=== PATIENT | female | born 1995 | race Caucasian/White ===

== ENCOUNTER 2017-09-24 10:31 | Emergency (ER) | payer OTHER ==
[~2017-09-24] VITALS: Ht 154.9 cm; Wt 74.4 kg
[~2017-09-24 10:31] MED LIST: ALBU90OI PO; AMOX500 PO; ANTOXYBENA BOTHEARS; Amoxicillin500 MG PO; Amoxicillin875 MG PO; CEPH500 PO; CIPRO500 MG PO; CODGUAEL PO; CYCL10 PO; FLUT44OIA IH; Flonase 0.05% N16 GM; GUAIFENESIN1200 MG PO; HYDACE5 PO; KETO10 PO; Keflex500 MG PO; MULVITMINE PO; MUPI2TC TOP; NYST100TC TOP; Norco 5-325 Ta1 EACH PO; OXYACE5T PO; PREN-16 PO; SULI150 PO; Veetids 500500 MG PO
[2018-04-09] MEDS ORDERED: Vibramycin100 MG PO (20:53)
[2018-04-09] MEDS ORDERED: Flagyl500 MG PO (20:53)
[2018-07-26] MEDS ORDERED: CEPH500 PO (14:00)
[2018-07-26] MEDS ORDERED: Pyridium200 MG PO (14:01)
== END 2017-09-24 12:36 | disposition home or self-care (01) ==
LOC: ER 10:31
DX: S90.31XA Contusion of right foot, initial encounter (principal); J45.909 Unspecified asthma, uncomplicated; F17.200 Nicotine dependence, unspecified, uncomplicated; Z88.8 Allergy status to other drugs, medicaments and biological substances; Z88.6 Allergy status to analgesic agent; Z88.5 Allergy status to narcotic agent; Z98.51 Tubal ligation status; W22.8XXA Striking against or struck by other objects, initial encounter
CPT/HCPCS: 73630; 99283

== ENCOUNTER 2018-02-21 14:17 | Emergency (ER) | payer OTHER ==
[~2018-02-21] VITALS: Ht 154.9 cm; Wt 74.4 kg
[2018-02-21] MEDS ORDERED: LACTULOSE20 GM/30 M PO (14:51)
== END 2018-02-21 14:55 | disposition home or self-care (01) ==
LOC: ER 14:17
DX: K59.00 Constipation, unspecified (principal); Z88.8 Allergy status to other drugs, medicaments and biological substances; Z88.6 Allergy status to analgesic agent; Z88.5 Allergy status to narcotic agent; J45.909 Unspecified asthma, uncomplicated; F17.210 Nicotine dependence, cigarettes, uncomplicated
CPT/HCPCS: 99282

== ENCOUNTER → 2018-05-26 | Outpatient (CLI) | payer OTHER ==
[~2018-05-26] MED LIST changes: +Flagyl500 MG PO; +LACTULOSE20 GM/30 M PO; +Vibramycin100 MG PO
[2018-05-27 11:35] LABS: Candida species (DNA Probe) Positive (NEGATIVE); G. vaginalis (DNA Probe) Positive (NEGATIVE); T. vaginalis (DNA Probe) Negative (NEGATIVE)
[2018-05-30 19:06] LABS: CHLAMYDIA TRACHOMATIS, NAA Negative (Negative); NEISSERIA GONORRHOEAE, NAA Negative (Negative)
== END ==
LOC: LAB 11:45 → LAB SHORT 11:45
PROVIDERS: Registered Nurse
DX: Z00.00 Encounter for general adult medical examination without abnormal findings (principal); N89.8 Other specified noninflammatory disorders of vagina; L29.2 Pruritus vulvae
CPT/HCPCS: 87480; 87491; 87510; 87591; 87660; G0123

== ENCOUNTER 2019-02-12 15:48 | Emergency (ER) | payer OTHER ==
[~2019-02-12] VITALS: Ht 154.9 cm; Wt 73.0 kg
[~2019-02-12 15:48] MED LIST changes: +Pyridium200 MG PO
[2019-02-12] MEDS ORDERED: ACET500 PO (16:51)
[2019-02-12] MEDS ORDERED: Amoxicillin500 MG PO (16:51)
== END 2019-02-12 17:14 | disposition home or self-care (01) ==
LOC: ER 15:48
DX: J02.9 Acute pharyngitis, unspecified (principal); F17.200 Nicotine dependence, unspecified, uncomplicated
CPT/HCPCS: 99282

== ENCOUNTER 2019-03-13 10:16 | Emergency (ER) | payer OTHER ==
[~2019-03-13] VITALS: Ht 154.9 cm; Wt 74.8 kg
[~2019-03-13 10:16] MED LIST changes: +ACET500 PO
[2019-03-13 11:42] LABS: BASOPHILS ABSOLUTE AUTO 0.04 K/mm3 (0.00-0.23); BASOPHILS PERCENT AUTO 1 % (0-2); EOSINOPHILS ABSOLUTE AUTO 0.29 K/mm3 (0.00-0.68); EOSINOPHILS PERCENT AUTO 4 % (0-6); Hematocrit 34.4 % (33.0-51.0); Hemoglobin 11.6 g/dL (11.5-16.0); IMMATURE GRAN ABSOLUTE AUTO 0.16 K/mm3 (0.00-0.10); IMMATURE GRAN PERCENT AUTO 2 % (0-1); LYMPHOCYTES PERCENT AUTO 25 % (21-46); MONOCYTES ABSOLUTE AUTO 0.57 K/mm3 (0.16-1.47); MONOCYTES PERCENT AUTO 7 % (4-13); Mean Corpuscular HGB 32.8 pg (26.0-34.0); Mean Corpuscular HGB Conc 33.7 g/dL (31.5-36.5); Mean Corpuscular Volume 97 fL (80-100); NEUTROPHILS PERCENT AUTO 62 % (41-73); Platelet Count 301 K/mm3 (150-400); RDW Coefficient Variation 12.1 % (11.7-14.2); RDW Standard Deviation 42.6 fL (35.1-46.3); Red Blood Cell Count 3.54 M/mm3 (3.80-5.20); White Blood Cell Count 8.16 K/mm3 (4.00-11.30)
[2019-03-13 12:19] LABS: Alanine Aminotransfer (ALT/SGP 100 U/L (12-78); Albumin, Blood 3.6 g/dL (3.4-5.0); Albumin/Globulin Ratio 1.1 (0.8-1.8); Alk Phos 76 U/L (50-136); Anion Gap 7 mmol/L (6-16); Aspartate Aminotrans (AST/SGOT 48 U/L (12-37); Bilirubin, Total 0.5 mg/dL (0.1-1.0); Blood Urea Nitrogen 7 mg/dL (8-24); Bun/Creatinine Ratio 11.6 (12.0-20.0); CO2, Blood 25 mmol/L (21-32); Calcium, Blood 8.9 mg/dL (8.5-10.1); Chloride, Blood 110 mmol/L (98-108); Globulin, Blood 3.4 g/dL (2.2-4.0); Glomerular Filtration Rate >60 (60-); Glucose, Blood 94 mg/dL (70-99); Potassium, Blood 3.7 mmol/L (3.5-5.5); Sodium, Blood 142 mmol/L (136-145)
== END 2019-03-13 13:25 | disposition home or self-care (01) ==
LOC: ER 10:16
PROVIDERS: Physician Assistant
DX: R59.0 Localized enlarged lymph nodes (principal); Z88.5 Allergy status to narcotic agent; Z88.8 Allergy status to other drugs, medicaments and biological substances; Z88.6 Allergy status to analgesic agent; F17.200 Nicotine dependence, unspecified, uncomplicated
CPT/HCPCS: 36415; 70491; 80053; 85025; 96360-59; 99284-25; J7120; Q9967

== ENCOUNTER 2019-08-23 10:11 | Emergency (ER) | payer OTHER ==
[~2019-08-23] VITALS: Ht 154.9 cm; Wt 74.8 kg
[2019-08-23] MEDS ORDERED: Flonase 0.05% N16 GM (11:17)
[2019-08-23] MEDS ORDERED: ALBU90OI INH (11:17)
[2019-08-23] MEDS ORDERED: Prednisone20 MG PO (11:17)
== END 2019-08-23 12:17 | disposition home or self-care (01) ==
LOC: ER 10:11
DX: J32.9 Chronic sinusitis, unspecified (principal); J45.909 Unspecified asthma, uncomplicated; F17.210 Nicotine dependence, cigarettes, uncomplicated; Z88.5 Allergy status to narcotic agent; Z88.8 Allergy status to other drugs, medicaments and biological substances; Z88.6 Allergy status to analgesic agent
CPT/HCPCS: 94640; 99283-25; J7512

== ENCOUNTER 2019-12-21 19:30 | Emergency (ER) | payer OTHER ==
[~2019-12-21] VITALS: Ht 154.9 cm; Wt 63.5 kg
[~2019-12-21 19:30] MED LIST changes: +ALBU90OI INH; +Prednisone20 MG PO
[2019-12-21] MEDS ORDERED: Percocet 5-3251 EACH PO (20:23)
== END 2019-12-21 20:55 | disposition home or self-care (01) ==
LOC: ER 19:30
DX: J03.90 Acute tonsillitis, unspecified (principal); J45.909 Unspecified asthma, uncomplicated; Z88.5 Allergy status to narcotic agent; Z88.6 Allergy status to analgesic agent; Z88.8 Allergy status to other drugs, medicaments and biological substances; Z79.899 Other long term (current) drug therapy
CPT/HCPCS: 96372; 99283-25; A9270; J1170

== ENCOUNTER 2021-03-12 20:22 | Emergency (ER) | payer OTHER ==
[~2021-03-12] VITALS: Ht 154.9 cm; Wt 83.9 kg
[~2021-03-12 20:22] MED LIST changes: +Percocet 5-3251 EACH PO
[2021-03-12] MEDS ORDERED: PSEU120ER PO (22:54)
[2021-03-12] MEDS ORDERED: Flonase 0.05% N16 GM (22:54)
== END 2021-03-12 23:08 | disposition home or self-care (01) ==
LOC: ER 20:22
DX: J31.0 Chronic rhinitis (principal); Z88.5 Allergy status to narcotic agent; Z88.8 Allergy status to other drugs, medicaments and biological substances; Z88.6 Allergy status to analgesic agent; Z79.899 Other long term (current) drug therapy; Z79.52 Long term (current) use of systemic steroids
CPT/HCPCS: 99282; A9270

== ENCOUNTER 2021-05-30 14:49 | Emergency (ER) | payer OTHER ==
[~2021-05-30] VITALS: Ht 154.9 cm; Wt 80.7 kg
[~2021-05-30 14:49] MED LIST changes: +PSEU120ER PO
== END 2021-05-30 15:24 | disposition home or self-care (01) ==
LOC: ER 14:49
DX: R59.0 Localized enlarged lymph nodes (principal); F17.200 Nicotine dependence, unspecified, uncomplicated; Z88.5 Allergy status to narcotic agent; Z88.6 Allergy status to analgesic agent; Z88.8 Allergy status to other drugs, medicaments and biological substances
CPT/HCPCS: 99282

== ENCOUNTER 2021-09-21 17:52 | Emergency (ER) | payer OTHER ==
[~2021-09-21] VITALS: Ht 154.9 cm; Wt 81.7 kg
[2021-09-21] MEDS ORDERED: ONDA4ODT MM (20:27)
== END 2021-09-21 20:30 | disposition home or self-care (01) ==
LOC: ER 17:52
DX: B34.9 Viral infection, unspecified (principal); J45.909 Unspecified asthma, uncomplicated; F17.200 Nicotine dependence, unspecified, uncomplicated; Z88.5 Allergy status to narcotic agent; Z88.6 Allergy status to analgesic agent; Z88.8 Allergy status to other drugs, medicaments and biological substances
CPT/HCPCS: J1885

== ENCOUNTER → 2022-01-26 | Outpatient (CLI) | payer OTHER ==
[~2022-01-26] MED LIST changes: +ONDA4ODT MM
[2022-01-28 00:13] LABS: HIV AB/P24 AG SCREEN Non Reactive (Non Reactive)
[2022-01-28 08:13] LABS: HBSAG SCREEN Negative (Negative); HCV AB <0.1 (0.0-0.9); HEP A AB, IGM Negative (Negative); HEP B CORE AB, TOT Negative (Negative)
[2022-01-28 19:08] LABS: CHLAMYDIA BY NAA Negative (Negative); GONOCOCCUS BY NAA Negative (Negative)
[2022-01-29 10:52] LABS: TRICH VAG BY NAA Positive (Negative)
== END | disposition home or self-care (01) ==
LOC: LAB 11:40 → LAB SHORT 11:40
PROVIDERS: Physician Assistant Medical
DX: N89.8 Other specified noninflammatory disorders of vagina (principal)
CPT/HCPCS: 86592; 86704; 86708; 86803; 87070; 87147; 87205; 87340; 87389; 87491; 87591; 87661

== ENCOUNTER → 2022-02-10 | Outpatient (CLI) | payer OTHER ==
[2022-02-11 09:59] LABS: Candida species (DNA Probe) Negative (NEGATIVE); G. vaginalis (DNA Probe) Negative (NEGATIVE); T. vaginalis (DNA Probe) Negative (NEGATIVE)
== END ==
LOC: LAB SHORT 13:30 → LAB 13:30
PROVIDERS: Registered Nurse Community Health
DX: N89.8 Other specified noninflammatory disorders of vagina (principal)
CPT/HCPCS: 87480; 87510; 87660

== ENCOUNTER → 2022-03-02 | Outpatient (CLI) | payer OTHER ==
[2022-03-03 07:35] LABS: Candida species (DNA Probe) Negative (NEGATIVE); G. vaginalis (DNA Probe) Negative (NEGATIVE); T. vaginalis (DNA Probe) Negative (NEGATIVE)
[2022-03-04 01:07] LABS: CHLAMYDIA TRACHOMATIS, NAA Negative (Negative)
== END ==
LOC: LAB SHORT 10:45 → LAB 10:45
PROVIDERS: Registered Nurse Community Health
DX: Z11.3 Encounter for screening for infections with a predominantly sexual mode of transmission (principal); N89.8 Other specified noninflammatory disorders of vagina
CPT/HCPCS: 87480; 87491; 87510; 87591; 87660

== ENCOUNTER 2022-03-22 14:59 | Emergency (ER) | payer OTHER ==
[~2022-03-22] VITALS: Ht 154.9 cm; Wt 81.7 kg
[2022-03-22] MEDS ORDERED: APAP500 MG PO ×2 (16:10→16:11)
== END 2022-03-22 16:31 | disposition home or self-care (01) ==
LOC: ER 14:59
DX: S20.212A Contusion of left front wall of thorax, initial encounter (principal); F17.210 Nicotine dependence, cigarettes, uncomplicated; Z88.5 Allergy status to narcotic agent; Z88.8 Allergy status to other drugs, medicaments and biological substances; Y04.2XXA Assault by strike against or bumped into by another person, initial encounter; Y07.03 Male partner, perpetrator of maltreatment and neglect
CPT/HCPCS: 71046; 99283-25

== ENCOUNTER 2022-05-28 22:07 | Emergency (ER) | payer OTHER ==
[~2022-05-28] VITALS: Ht 154.9 cm; Wt 81.7 kg
[~2022-05-28 22:07] MED LIST changes: +APAP500 MG PO
[2022-05-29] MEDS ORDERED: CEPH500 PO (02:29)
[2022-05-30] MEDS ORDERED: Percocet 5-3251 EACH PO (17:09)
[2022-05-30] MEDS ORDERED: SULTRIDS PO (17:09)
== END 2022-05-29 02:43 | disposition home or self-care (01) ==
LOC: ER 22:07
DX: L05.91 Pilonidal cyst without abscess (principal); F17.200 Nicotine dependence, unspecified, uncomplicated; Z88.5 Allergy status to narcotic agent; Z88.8 Allergy status to other drugs, medicaments and biological substances
CPT/HCPCS: 99282; A9270

== ENCOUNTER 2022-05-30 13:35 | Emergency (ER) | payer OTHER ==
[~2022-05-30] VITALS: Ht 154.9 cm; Wt 81.7 kg
[2022-05-30] MEDS ORDERED: SULTRIDS PO (17:09)
[2022-05-30] MEDS ORDERED: Percocet 5-3251 EACH PO (17:09)
== END 2022-05-30 17:42 | disposition home or self-care (01) ==
LOC: ER 13:35
DX: L05.91 Pilonidal cyst without abscess (principal); J45.909 Unspecified asthma, uncomplicated; F17.210 Nicotine dependence, cigarettes, uncomplicated; Z88.8 Allergy status to other drugs, medicaments and biological substances; Z88.6 Allergy status to analgesic agent; Z88.5 Allergy status to narcotic agent
CPT/HCPCS: J1885

== ENCOUNTER 2022-05-31 19:46 | Emergency (ER) | payer OTHER ==
[~2022-05-31] VITALS: Ht 154.9 cm; Wt 81.7 kg
[~2022-05-31 19:46] MED LIST changes: +SULTRIDS PO
== END 2022-05-31 23:40 | disposition home or self-care (01) ==
LOC: ER 19:46
DX: L05.01 Pilonidal cyst with abscess (principal); J45.909 Unspecified asthma, uncomplicated; F17.210 Nicotine dependence, cigarettes, uncomplicated; Z88.6 Allergy status to analgesic agent; Z88.5 Allergy status to narcotic agent; Z88.8 Allergy status to other drugs, medicaments and biological substances
CPT/HCPCS: A9270

== ENCOUNTER → 2022-10-13 | Outpatient (CLI) | payer OTHER ==
[2022-10-15 12:08] LABS: HPV 16 Positive (Negative); HPV 18 Negative (Negative); HPV OTHER HR TYPES Negative (Negative)
== END | disposition home or self-care (01) ==
LOC: LAB SHORT 11:25 → LAB 11:25
PROVIDERS: Registered Nurse
DX: Z12.4 Encounter for screening for malignant neoplasm of cervix (principal)
CPT/HCPCS: 87624; G0145

== ENCOUNTER → 2022-11-03 | Outpatient (CLI) | payer OTHER | END | disposition home or self-care (01) | LOC: LAB SHORT 12:42 → PLD 12:42 | DX: R87.810 Cervical high risk human papillomavirus (HPV) DNA test positive (principal) | CPT/HCPCS: 88305 ==

== ENCOUNTER → 2023-01-19 | Outpatient (CLI) | payer OTHER ==
[~2023-01-19] MED LIST changes: +Avidoxy100 MG PO; +Bactrim Ds Tab1 EACH PO
== END | disposition home or self-care (01) ==
LOC: LAB SHORT 14:18 → PLD 14:18
DX: D06.9 Carcinoma in situ of cervix, unspecified (principal)
CPT/HCPCS: 88307

== ENCOUNTER 2023-02-07 22:05 | Emergency (ER) | payer OTHER ==
[~2023-02-07] VITALS: Ht 154.9 cm; Wt 79.4 kg
[2023-02-07 23:06] LABS: BASOPHILS ABSOLUTE AUTO 0.05 K/mm3 (0.00-0.23); BASOPHILS PERCENT AUTO 1 % (0-2); EOSINOPHILS PERCENT AUTO 2 % (0-6); Hematocrit 38.9 % (33.0-51.0); Hemoglobin 13.2 g/dL (11.5-16.0); IMMATURE GRAN ABSOLUTE AUTO 0.02 K/mm3 (0.00-0.10); IMMATURE GRAN PERCENT AUTO 0 % (0-1); LYMPHOCYTES ABSOLUTE AUTO 2.36 K/mm3 (0.84-5.20); LYMPHOCYTES PERCENT AUTO 35 % (21-46); MONOCYTES ABSOLUTE AUTO 0.94 K/mm3 (0.16-1.47); MONOCYTES PERCENT AUTO 14 % (4-13); Mean Corpuscular HGB 33.1 pg (26.0-34.0); Mean Corpuscular HGB Conc 33.9 g/dL (31.5-36.5); Mean Corpuscular Volume 98 fL (80-100); NEUTROPHILS ABSOLUTE AUTO 3.29 K/mm3 (1.96-9.15); NEUTROPHILS PERCENT AUTO 49 % (41-73); Platelet Count 349 K/mm3 (150-400); RDW Standard Deviation 43.5 fL (35.1-46.3); Red Blood Cell Count 3.99 M/mm3 (3.80-5.20); White Blood Cell Count 6.76 K/mm3 (4.00-11.30)
[2023-02-07 23:24] LABS: Albumin, Blood 3.6 g/dL (3.4-5.0); Albumin/Globulin Ratio 1.1 (0.8-1.8); Bilirubin, Total 0.4 mg/dL (0.1-1.0); Bun/Creatinine Ratio 13.1 (12.0-20.0); Calcium, Blood 8.8 mg/dL (8.5-10.1); Creatinine, Blood 0.84 mg/dL (0.40-1.00); Globulin, Blood 3.4 g/dL (2.2-4.0); Potassium, Blood 3.6 mmol/L (3.5-5.5)
[2023-02-07 23:52] LABS: Influenza A, PCR NEGATIVE (NEGATIVE); Influenza B, PCR NEGATIVE (NEGATIVE); Resp Syncytial Virus, PCR NEGATIVE (NEGATIVE); SARS-Cov-2 (COVID-19) PCR, MMC NEGATIVE (NEGATIVE)
[2023-02-08 00:09] LABS: Bilirubin, Urine Neg (Neg); Blood, Urine 3+ (Neg); Glucose Qualitative, Urine Neg (Neg); Ketones, Urine Neg (Neg); Leukocyte Esterase, Urine 2+ (Neg); Nitrite, Urine Neg (Neg); Protein, Urine 1+ (Neg); Source, Urine Straight Cath; Specific Gravity, Urine 1.015 (1.003-1.022); Urobilinogen, Urine 1+ (Normal); pH, Urine 6.5 (5.0-8.0)
[2023-02-08 00:41] LABS: Color, Urine Yellow (P-Yellow)
[2023-02-08 00:42] LABS: Appearance, Urine Clear (Clear)
[2023-02-08 00:43] LABS: Bacteria Few /hpf; Red Blood Cells, Urine 0-2 /hpf (0-2); Squamous Epithelial Cells Few /hpf (Few)
[2023-02-08] MEDS ORDERED: CEFD300 PO (00:48)
[2023-02-08 00:58] VITALS: BP 100/73
== END 2023-02-08 00:58 | disposition home or self-care (01) ==
LOC: ER 22:05
PROVIDERS: Emergency Medicine
DX: N39.0 Urinary tract infection, site not specified (principal); Z88.5 Allergy status to narcotic agent; Z88.8 Allergy status to other drugs, medicaments and biological substances; Z88.6 Allergy status to analgesic agent; J45.909 Unspecified asthma, uncomplicated; F17.210 Nicotine dependence, cigarettes, uncomplicated
CPT/HCPCS: 0241U; 80053; 81001; 83735; 85025; 87086; A9270; J1885; J3010

== ENCOUNTER 2023-07-17 10:42 | Emergency (ER) | payer OTHER ==
[~2023-07-17] VITALS: Ht 154.9 cm; Wt 79.4 kg
[~2023-07-17 10:42] MED LIST changes: +CEFD300 PO
[2023-07-17 10:47] VITALS: BP 125/82
[2023-07-17] MEDS ORDERED: AMOCLA875 PO ×2 (11:32→11:33)
== END 2023-07-17 11:52 | disposition home or self-care (01) ==
LOC: ER 10:42
DX: L05.01 Pilonidal cyst with abscess (principal); Z88.8 Allergy status to other drugs, medicaments and biological substances; Z88.5 Allergy status to narcotic agent; Z88.6 Allergy status to analgesic agent; J45.909 Unspecified asthma, uncomplicated; F17.210 Nicotine dependence, cigarettes, uncomplicated
CPT/HCPCS: 10080; 99282-25; A9270

== ENCOUNTER 2023-07-23 06:10 | Day surgery (SDC) | payer OTHER ==
[2023-07-23] VITALS (14 sets, daily range): BP systolic 110–138; BP diastolic 62–91
[~2023-07-23] VITALS: Ht 154.9 cm; Wt 82.2 kg
[~2023-07-23 06:10] MED LIST changes: +AMOCLA875 PO
--- NOTE | 2023-07-23 08:10 | NUR ---
07/23/23 0810 ANDREA NOEL NOTED SMALL SCRATCH ACROSS PT UPPER FOREHEAD PRIOR TO OR ARRIVAL.
--- NOTE | 2023-07-23 11:17 | NUR ---
Discharge instructions reviewed with patient. Patient verbalizes understanding. Copy given to patient to take home. Demonstrated how to empty/chart CRYSTAL output. Patient States Post-Procedure ride home has been arranged. Discharged via wheelchair to private car for ride home.
== END 2023-07-23 11:10 | disposition home or self-care (01) ==
LOC: ORSCMMR 06:10
PROVIDERS: Surgery
PROC: 0HX8XZZ Transfer Buttock Skin, External Approach (ICD-10-PCS; principal; 2023-07-23 07:30)
DX: L05.91 Pilonidal cyst without abscess (principal); J45.909 Unspecified asthma, uncomplicated; F17.210 Nicotine dependence, cigarettes, uncomplicated; E66.9 Obesity, unspecified; Z68.34 Body mass index [BMI] 34.0-34.9, adult
CPT/HCPCS: J0690; J1100; J1170; J2250; J2405; J2704; J3010; J7120

== ENCOUNTER 2023-08-29 14:15 | Emergency (ER) | payer OTHER ==
[~2023-08-29] VITALS: Ht 165.1 cm; Wt 72.6 kg
[2023-08-29 14:23] VITALS: BP 134/90
== END 2023-08-29 15:54 | disposition home or self-care (01) ==
LOC: ER 14:15
DX: Z48.817 Encounter for surgical aftercare following surgery on the skin and subcutaneous tissue (principal); F17.210 Nicotine dependence, cigarettes, uncomplicated; Z88.5 Allergy status to narcotic agent; Z88.0 Allergy status to penicillin; Z88.8 Allergy status to other drugs, medicaments and biological substances
CPT/HCPCS: 99283

== ENCOUNTER 2023-10-17 20:09 | Emergency (ER) | payer OTHER ==
[~2023-10-17] VITALS: Ht 154.9 cm; Wt 81.7 kg
[2023-10-17 20:30] VITALS: BP 128/95
[2023-10-17 21:20] LABS: Source, Urine Clean Catch
[2023-10-17 21:24] LABS: Appearance, Urine Clear (Clear); Bilirubin, Urine Neg (Neg); Blood, Urine Neg (Neg); Color, Urine Yellow (P-Yellow); Glucose Qualitative, Urine Neg (Neg); Ketones, Urine Neg (Neg); Leukocyte Esterase, Urine Neg (Neg); Nitrite, Urine Neg (Neg); Protein, Urine Neg (Neg); Urobilinogen, Urine NORM (Normal)
== END 2023-10-17 22:43 | disposition home or self-care (01) ==
LOC: ER 20:09
PROVIDERS: Physician Assistant
DX: B34.9 Viral infection, unspecified (principal); J45.909 Unspecified asthma, uncomplicated; F17.210 Nicotine dependence, cigarettes, uncomplicated
CPT/HCPCS: 81003; 81025; 99283

== ENCOUNTER 2023-10-18 01:58 | Day surgery (SDC) | payer OTHER | END 2023-10-18 23:05 | disposition home or self-care (01) | LOC: WOUND 01:58 | DX: L05.91 Pilonidal cyst without abscess (principal); Z88.5 Allergy status to narcotic agent; Z88.8 Allergy status to other drugs, medicaments and biological substances; F17.200 Nicotine dependence, unspecified, uncomplicated | CPT/HCPCS: 99406; G0463 ==

== ENCOUNTER 2023-10-25 00:16 | Day surgery (SDC) | payer OTHER | END 2023-10-25 23:46 | disposition home or self-care (01) | LOC: WOUND 00:16 | DX: L05.91 Pilonidal cyst without abscess (principal); Z72.0 Tobacco use | CPT/HCPCS: G0463 ==

== ENCOUNTER 2023-11-01 08:00 | Day surgery (SDC) | payer OTHER | END 2023-11-01 22:45 | disposition home or self-care (01) | LOC: WOUND 08:00 | DX: L05.91 Pilonidal cyst without abscess (principal); Z72.0 Tobacco use | CPT/HCPCS: G0463 ==

== ENCOUNTER → 2024-02-01 | Outpatient (CLI) | payer OTHER ==
[2024-02-01 15:04] LABS: Bacterial Vaginosis PCR Negative (NEGATIVE); Candida Group, PCR NOT DETECTED (NOT DETECT)
[2024-02-01 15:05] LABS: Candida glabrata-krusei, PCR DETECTED (NOT DETECT)
[2024-02-04 06:38] LABS: HPV HIGH RISK BY TMA Not Detected; HPV SOURCE Vaginal
== END | disposition home or self-care (01) ==
LOC: LAB 10:46 → LAB SHORT 10:46
PROVIDERS: Obstetrics & Gynecology
DX: Z01.419 Encounter for gynecological examination (general) (routine) without abnormal findings (principal); N89.8 Other specified noninflammatory disorders of vagina
CPT/HCPCS: 87481; 87624; 87661; 87801; G0123

== ENCOUNTER 2024-06-23 06:12 | Day surgery (SDC) | payer OTHER ==
[~2024-06-23] VITALS: Ht 154.9 cm; Wt 86.6 kg
[2024-06-23] VITALS (9 sets, daily range): BP systolic 101–123; BP diastolic 72–89
[~2024-06-23 06:12] MED LIST changes: +ALEVE ARTHRITI100 GM
[2024-06-23] MEDS ORDERED: Lactated Ringer's 1,000 ML IV SCH (06:30)
[2024-06-23] MEDS ORDERED: CeFAZolin Sodium 2,000 MG in NS 100 ML IV SCH (06:30)
--- NOTE | 2024-06-23 07:02 | NUR ---
Ambulatory in Day SurgeryPre-Op teaching done. Pt verbalizes understanding. Patient confirms NPO status and agrees with scheduled surgery. History, Chart, Medications and Allergies reviewed before start of procedure.Patient States Post-Procedure ride home has been arranged.
[2024-06-23] MEDS ORDERED: Bupivacaine 0.5% HCl 5 MG/ML 30MLVIAL ONE (07:06)
[2024-06-23] MEDS ORDERED: EpiNEPhrine 1 MG/1 ML 1ML Vial ONE (07:06)
[2024-06-23] MEDS ORDERED: propofoL 20 ML IV ONE (07:14)
[2024-06-23] MEDS ORDERED: FentaNYL Citrate 50 MCG/ML 2 ML Injection ONE ×2 (07:15→08:52)
[2024-06-23] MEDS ORDERED: Midazolam HCl 1MG / ML 2ML Vial IV ONE (07:15)
[2024-06-23] MEDS ORDERED: Ondansetron HCl 2 MG / ML 2ML Vial ONE (08:15)
[2024-06-23] MEDS ORDERED: Phenylephrine HCl 100 MCG/ML-NS 10MLSYR (1MG/10ML) ONE (08:15)
[2024-06-23] MEDS ORDERED: Dexamethasone Sod Phos 10 MG/ML 1ML VIAL ONE (08:15)
[2024-06-23] MEDS ORDERED: Ketorolac Tromethamine 30mg Vial ONE (08:16)
[2024-06-23] MEDS ORDERED: Sugammadex Sodium 200 MG/2ML SDV (100 MG/ML) ONE (08:16)
[2024-06-23] MEDS ORDERED: HYDROcodone 5-APAP 325 TAB PO PRN (09:00)
--- NOTE | 2024-06-23 09:25 | NUR ---
REPORT RECEIVED FROM FILOMENA NARAYAN. VSS. PT ON RA. PT A&OX4. PT ABLE TO REPOSITION SELF IN BED. PT REQUESTING PO FOOD AND FLUIDS AND TOLERATING THEM WELL. PT REPORTS 3/10 DISCOMFORT TO SURGICAL SITE THAT IS TOLERABLE. PT DENIES NAUSEA OR OTHER DISCOMFORTS. PT HAS DERMABOND OVER INCISION SITE TO MIDLINE DARIAN THAT IS C/D/I.
--- NOTE | 2024-06-23 09:58 | NUR ---
0950 Patient up to Ambulate independently. Gait steady. VSS AND CONSISTENT WITH PT BASELINE. PT HAS NO COMPLAINTS AND VERBALIZES READINESS TO GO HOME. Discharge instructions reviewed with patient AND HER SPOUSE. Patient AND SPOUSE verbalize understanding. Copy given to patient to take home. Dressing to procedure site clean, dry, intact with no visible drainage, swelling, erythema or bruising noted. Patient States Post-Procedure ride home has been arranged. Discharged via wheelchair to private car for ride home. PT BELONGINGS RETURNED TO PT.
== END 2024-06-23 09:55 | disposition home or self-care (01) ==
LOC: ORSCMMR 06:12 → ORD 07:30 → ORSCMMR 07:30
PROVIDERS: Surgery
PROC: 0HX8XZZ Transfer Buttock Skin, External Approach (ICD-10-PCS; principal; 2024-06-23 07:30)
DX: L05.91 Pilonidal cyst without abscess (principal); F17.210 Nicotine dependence, cigarettes, uncomplicated; J45.909 Unspecified asthma, uncomplicated; Z68.36 Body mass index [BMI] 36.0-36.9, adult
CPT/HCPCS: J0171; J0690; J1100; J1885; J2250; J2371; J2405; J2704; J3010; J7120

== ENCOUNTER 2025-06-01 12:43 | Emergency (ER) | payer OTHER ==
[~2025-06-01] VITALS: Ht 154.9 cm; Wt 89.4 kg
[~2025-06-01 12:43] MED LIST changes: +LEVAQUIN750 MG PO
[2025-06-01 13:02] VITALS: BP 128/83
[2025-06-01 14:21] LABS: Influenza A, PCR NEGATIVE (NEGATIVE); Influenza B, PCR NEGATIVE (NEGATIVE); Resp Syncytial Virus, PCR NEGATIVE (NEGATIVE); SARS-Cov-2 (COVID-19) PCR, MMC NEGATIVE (NEGATIVE)
== END 2025-06-01 15:20 | disposition home or self-care (01) ==
LOC: ER 12:43
PROVIDERS: Physician Assistant
DX: J06.9 Acute upper respiratory infection, unspecified (principal); J45.909 Unspecified asthma, uncomplicated; F17.210 Nicotine dependence, cigarettes, uncomplicated; Z88.8 Allergy status to other drugs, medicaments and biological substances; Z59.89 Other problems related to housing and economic circumstances
CPT/HCPCS: 87637; 99283